=== PATIENT | female | born 1995 | race American Indian/Alaskan Native ===

== ENCOUNTER 2017-08-04 22:59 | Emergency (ER) | payer BC, OTHER ==
[2017-08-04 22:59] VITALS: BMI 29.1
[2017-08-04 23:16] VITALS: O2SAT 99
--- NOTE | 2017-08-04 23:30 | C.PDOC ---
History Of Present Illness 22 year old female presents to the ER with a complaint of abdominal pain associated with nausea for the past few days. Patient states she believes she might be . Denies diarrhea. Chief Complaint (Nursing): Abdominal Pain History Per: Patient History/Exam Limitations: no limitations Onset/Duration Of Symptoms: Days Current Symptoms Are (Timing): Still Present Location Of Pain/Discomfort: RUQ, LUQ Radiation Of Pain To:: None Quality Of Discomfort: Unable To Describe Associated Symptoms: Nausea. denies: Fever, Vomiting, Diarrhea Exacerbating Factors: None Alleviating Factors: None Recent travel outside of the [place]: No Abnormal Vaginal Bleeding: No Past Medical History Reviewed: Historical Data, Nursing Documentation, Vital Signs Vital Signs: Last Vital Signs Temp 98.0 F 08/05/17 02:45 Pulse 92 H 08/05/17 02:45 Resp 20 08/05/17 02:45 BP 105/52 L 08/05/17 02:45 Pulse Ox 99 08/05/17 02:45 - [facility] Procedures EXTRACTION OF POC, LOW CERVICAL, OPEN APPROACH (05/25/15) Family History: States: Unknown Family Hx - Social History Hx Alcohol Use: No Hx Substance Use: No - Immunization History Hx Tetanus Toxoid Vaccination: Yes Hx Influenza Vaccination: Yes Hx Pneumococcal Vaccination: No Review Of Systems Constitutional: Negative for: Fever, Chills Cardiovascular: Negative for: Chest Pain, Palpitations Respiratory: Negative for: Cough, Shortness of Breath Gastrointestinal: Positive for: Nausea, Abdominal Pain. Negative for: Vomiting Physical Exam - Physical Exam Appears: Non-toxic Skin: Normal Color, Warm, Dry Head: Atraumatic, Normacephalic Eye(s): bilateral: Normal Inspection Oral Mucosa: Moist Chest: Symmetrical, No Tenderness Cardiovascular: Rhythm Regular Respiratory: Normal Breath Sounds, No Rales, No Rhonchi, No Wheezing Gastrointestinal/Abdominal: Soft, Tenderness (RUQ, LUQ), No Guarding, No Rebound Back: No CVA Tenderness Neurological/Psych: Oriented x3, Normal Speech ED Course And Treatment - Laboratory Results Result Diagrams: 08/04/17 23:59 08/04/17 23:59 O2 Sat by Pulse Oximetry: 99 (Room air) Pulse Ox Interpretation: Normal Progress Note: Bloodwork, urinalysis, abdominal US and pelvis US ordered. Disposition Counseled Patient/Family Regarding: Diagnosis - Disposition Referrals: [facility] [Outside] Disposition: HOME/ ROUTINE Disposition Time: 03:25 Condition: STABLE Prescriptions: Ondansetron ODT [Zofran ODT] 1 odt PO BID PRN #6 odt PRN Reason: Nausea/Vomiting Forms: [facility] (Burmese) - POA Present On Arrival: None - Clinical Impression Clinical Impression: , Nausea and vomiting during prior to 22 weeks gestation - Scribe Statement The provider has reviewed the documentation as recorded by the Scribe Fernando Garcia All medical record entries made by the Scribe were at my direction and personally dictated by me. I have reviewed the chart and agree that the record accurately reflects my personal performance of the history, physical exam, medical decision making, and the department course for this patient. I have also personally directed, reviewed, and agree with the discharge instructions and disposition.
[2017-08-05 00:20] LABS: ALB/GLOB RATIO 1.1 (1.0-2.1); ALBUMIN 4.1 g/dL (3.5-5.0); ALT/SGPT 14 U/L (9-52); AST/SGOT 17 U/L (14-36); BLOOD UREA NITROGEN 9 mg/dL (7-17); CALCIUM 9.2 mg/dl (8.6-10.4); GFR AFRICAN-AMERICAN > 60; GFR NON-AFRICAN AMERICAN > 60
[2017-08-05 00:28] LABS: BASO # 0.1 K/uL (0.0-0.2); BASO % 0.4 % (0.0-2.0); EOS # 0.3 K/uL (0.0-0.7); EOS % 2.2 % (0.0-4.0); HEMOGLOBIN 11.3 g/dL (11.0-16.0); LYMPH # 3.2 K/uL (1.0-4.3); LYMPH % 27.2 % (20.0-40.0); MEAN CORPUSCULAR HEMOGLOBIN 26.7 pg (27.0-31.0); MEAN CORPUSCULAR HGB CONC 32.9 g/dL (33.0-37.0); MEAN PLATELET VOLUME 8.6 fL (7.2-11.7); MONO # 0.6 K/uL (0.0-0.8); MONO % 5.3 % (0.0-10.0); NEUT # 7.5 K/uL (1.8-7.0); NEUT % 64.9 % (50.0-75.0); NRBC % 0.1 % (0.0-2.0); RBC 4.24 Mil/uL (3.80-5.20); RED CELL DISTRIBUTION WIDTH 13.3 % (11.5-14.5); WHITE BLOOD COUNT 11.6 K/uL (4.8-10.8)
[2017-08-05 00:34] LABS: URINE BILIRUBIN NEGATIVE (NEGATIVE); URINE CLARITY Clear (Clear); URINE COLOR YELLOW (YELLOW); URINE GLUCOSE (UA) NEGATIVE (Normal)
[2017-08-05 00:35] LABS: URINE BLOOD NEGATIVE (NEGATIVE); URINE LEUKOCYTE ESTERASE NEGATIVE Leu/uL (Negative); URINE PROTEIN NEGATIVE (NEGATIVE); URINE UROBILINOGEN 0.2 mg/dL (0.2-1.0)
[2017-08-05 00:36] LABS: SQUAMOUS EPITHIAL 6 /hpf (0-5); URINE BACTERIA RARE (<OCC)
--- NOTE | 2017-08-05 02:57 | US ---
EXAM: US First Trimester, Transabdominal CLINICAL HISTORY: 22 years old, female; Pain; complicated by abdominal or pelvic pain; Lower; First trimester; Gestational age or lmp: 04/2017 or 05/2017; ; Additional info: Llq abd pain/ tenderness TECHNIQUE: Real-time transabdominal obstetrical ultrasound of the maternal pelvis and a first trimester with image documentation. COMPARISON: US - ABDOMEN COMPLETE 2017-08-05 01:17 FINDINGS: Gestation: The uterus contains a normal gestational sac measuring 2.6 cm. A normal yolk sac is identified measuring 3 mm. A normal pole is identified measuring 1 cm. Embryonic/ cardiac activity is identified, at a rate of 152 beats per minute. Measurements correlate with a mean gestational age of 7 weeks 2 days. The estimated date of delivery is 03/22/2018. Placenta/amniotic fluid: Cannot be adequately evaluated due to the early gestational age. Uterus/cervix: Unremarkable measuring 9.5 x 6.9 x 6.4 cm.. No myometrial mass. The cervix is closed measuring 3.1 cm. Ovaries: Right ovary is unremarkable measuring 3.9 x 1.8 x 2.3 cm. The right ovary measures 3.6 x 2.1 x 2.7 cm. There is a cyst in the left ovary which measures 2.1 x 1.6 x 1.9 cm probably a corpus luteal cyst. Free fluid: No free fluid. IMPRESSION: Live intrauterine , with no evidence of early complications. Left ovarian cyst, probable corpus luteal cyst.
[2017-08-05 03:04] VITALS: BP 105/52; PULSE 92; RESP 20; TEMP 98
--- NOTE | 2017-08-05 03:07 | US ---
EXAM: US Abdomen Complete CLINICAL HISTORY: 22 years old, female; Pain; Other: Pelvic; ; Additional info: Ruq abd pain TECHNIQUE: Real-time ultrasound of the abdomen (complete) with image documentation. COMPARISON: No relevant prior studies available. FINDINGS: Liver: Unremarkable measuring 15.2 cm. No mass. No intrahepatic bile duct dilation. Gallbladder: Unremarkable. No gallstones. Negative Currie's sign. The gallbladder wall is normal measuring 2 mm. Common bile duct: Unremarkable as visualized measuring 4 mm. No stones. No dilation. Pancreas: Unremarkable as visualized. Kidneys: Unremarkable. The right kidney measures 10.9 cm and the left kidney measures 10.9 cm No stones. No solid mass. No hydronephrosis. Spleen: Unremarkable measuring 9.3 cm. No splenomegaly. Aorta: Unremarkable. No aneurysm. Inferior vena cava: Unremarkable. IMPRESSION: Unremarkable abdominal ultrasound.
== END 2017-08-05 03:00 | disposition home or self-care (01) ==
LOC: C.ER 22:59
DX: O21.0 Mild hyperemesis gravidarum (principal); Z3A.01 Less than 8 weeks gestation of pregnancy

== ENCOUNTER 2017-09-15 21:59 | Emergency (ER) | payer BC ==
[2017-09-15 22:00] VITALS: BMI 29.1
[2017-09-15 22:13] VITALS: BP 105/70; PULSE 95; RESP 18; TEMP 99.3
--- NOTE | 2017-09-15 22:25 | C.PDOC ---
History Of Present Illness 22 y/o female, approximately 14 weeks , presents to the ED with complaints of nasal congestion and subjective fever for 2 days. Patient states she had a fever of 106 at work today. She has a 2-year-old toddler at home with mild cough and congestion, diagnosed with viral syndrome. Otherwise patient denies any nausea, vomiting, abdominal pain, or vaginal bleeding. Time Seen by Provider: 09/15/17 22:15 Chief Complaint (Nursing): Cough, Cold, Congestion History Per: Patient History/Exam Limitations: no limitations Onset/Duration Of Symptoms: Days Current Symptoms Are (Timing): Still Present Past Medical History Reviewed: Historical Data, Nursing Documentation, Vital Signs Vital Signs: Last Vital Signs Temp 99.3 F 09/15/17 22:10 Pulse 95 H 09/15/17 22:10 Resp 18 09/15/17 22:10 BP 105/70 09/15/17 22:10 Pulse Ox 100 09/15/17 23:02 Surgical History: - [facility] Procedures EXTRACTION OF POC, LOW CERVICAL, OPEN APPROACH (05/25/15) Family History: States: Unknown Family Hx - Social History Hx Tobacco Use: No Hx Alcohol Use: No Hx Substance Use: No - Immunization History Hx Tetanus Toxoid Vaccination: Yes Hx Influenza Vaccination: No Hx Pneumococcal Vaccination: No Review Of Systems Except As Marked, All Systems Reviewed And Found Negative. Constitutional: Positive for: Fever ENT: Positive for: Nose Discharge, Nose Congestion Cardiovascular: Negative for: Chest Pain Respiratory: Negative for: Shortness of Breath Gastrointestinal: Negative for: Nausea, Vomiting, Abdominal Pain Genitourinary: Negative for: Vaginal Bleeding Physical Exam - Physical Exam Appears: Non-toxic, No Acute Distress Skin: Normal Color, Warm, Dry Head: Atraumatic, Normacephalic Eye(s): bilateral: Normal Inspection, PERRL, EOMI Nose: Normal, No Discharge Oral Mucosa: Moist Throat: Normal, No Erythema, No Exudate Neck: Normal ROM, Supple Chest: Symmetrical Cardiovascular: Rhythm Regular, No Murmur Respiratory: Normal Breath Sounds, No Rales, No Rhonchi, No Wheezing Gastrointestinal/Abdominal: Soft, No Tenderness, No Guarding, Other (Mildly gravid abdomen) Extremity: Bilateral: Atraumatic, Normal Color And Temperature, Normal ROM Neurological/Psych: Oriented x3, Normal Speech ED Course And Treatment O2 Sat by Pulse Oximetry: 98 (RA) Pulse Ox Interpretation: Normal Medical Decision Making Medical Decision Making: Impression: Likely mild viral syndrome as with her 2 y/o toddler @ home. On arrival to the ED patient is afebrile. Abdominal exam benign. Patient counseled regarding normal exam findings and diagnosis. Stable for discharge home. Disposition Doctor Will See Patient In The: Office Counseled Patient/Family Regarding: Studies Performed, Diagnosis - Disposition [facility]errals[facility] [Outside] Disposition: HOME/ ROUTINE Disposition Time: 22:24 Condition: GOOD Instructions: - The Fourth Month Forms: [facility] (Slovak) - POA Present On Arrival: None - Clinical Impression Clinical Impression: Viral syndrome, - Scribe Statement The provider has reviewed the documentation as recorded by the Scribe (Keena Rosenbaum) Provider Attestation: All medical record entries made by the Scribe were at my direction and personally dictated by me. I have reviewed the chart and agree that the record accurately reflects my personal performance of the history, physical exam, medical decision making, and the department course for this patient. I have also personally directed, reviewed, and agree with the discharge instructions and disposition.
[2017-09-15 23:38] VITALS: O2SAT 98
== END 2017-09-15 22:50 | disposition home or self-care (01) ==
LOC: C.ER 21:59
DX: O26.892 Other specified pregnancy related conditions, second trimester (principal); B34.9 Viral infection, unspecified; Z3A.14 14 weeks gestation of pregnancy

== ENCOUNTER 2018-06-08 19:28 | Emergency (ER) | payer SELFPAY ==
[2018-06-08 19:28] VITALS: BMI 29.1
--- NOTE | 2018-06-08 20:13 | C.PDOC ---
History Of Present Illness 23 year old female, 16 weeks , presents to the ED c/o lower abdominal pain for the past 4 days. Patient denies fever, chills, nausea, vomit, back pain, dysuria, hematuria, vaginal bleeding, vaginal discharge. Chief Complaint (Nursing): Abdominal Pain History Per: Patient History/Exam Limitations: no limitations Onset/Duration Of Symptoms: Days (4) Current Symptoms Are (Timing): Still Present Location Of Pain/Discomfort: Suprapubic Radiation Of Pain To:: None Quality Of Discomfort: "Pain" Associated Symptoms: denies: Nausea, Vomiting, Diarrhea, Urinary Symptoms Recent travel outside of the [place]: No Additional History Per: Patient Abnormal Vaginal Bleeding: No Last Menstral Period: 01/2018 Past Medical History Reviewed: Historical Data, Nursing Documentation, Vital Signs - Medical History PMH: No Chronic Diseases Denies: Chronic Kidney Disease Surgical History: - [facility] Procedures EXTRACTION OF POC, LOW CERVICAL, OPEN APPROACH (05/25/15) Family History: States: Unknown Family Hx - Social History Hx Tobacco Use: No Hx Alcohol Use: No Hx Substance Use: No - Immunization History Hx Tetanus Toxoid Vaccination: Yes Hx Influenza Vaccination: No Hx Pneumococcal Vaccination: No Review Of Systems Constitutional: Negative for: Fever, Chills Cardiovascular: Negative for: Chest Pain Respiratory: Negative for: Shortness of Breath Gastrointestinal: Positive for: Abdominal Pain. Negative for: Nausea, Vomiting Genitourinary: Negative for: Dysuria, Hematuria, Vaginal Discharge, Vaginal Bleeding Musculoskeletal: Negative for: Back Pain Skin: Negative for: Rash Physical Exam - Physical Exam Appears: Non-toxic, No Acute Distress Skin: Normal Color, Warm, Dry Head: Atraumatic, Normacephalic Eye(s): bilateral: Normal Inspection Oral Mucosa: Moist Neck: Normal ROM, Supple Chest: Symmetrical Cardiovascular: Rhythm Regular Respiratory: Normal Breath Sounds, No Rales, No Rhonchi, No Wheezing Gastrointestinal/Abdominal: Soft, Tenderness (hypogastric), No Guarding, No Rebound Back: No CVA Tenderness Extremity: Normal ROM, No Tenderness, No Swelling Neurological/Psych: Oriented x3, Normal Speech, Normal Cognition Gait: Steady ED Course And Treatment - Laboratory Results Result Diagrams: 06/08/18 20:32 06/08/18 20:32 O2 Sat by Pulse Oximetry: 97 Pulse Ox Interpretation: Normal - CT Scan/US Pelvic US Other Rad Studies (CT/US): Read By Radiologist, Radiology Report Reviewed CT/US Interpretation: Procedure. OB Pelvic Ultrasound. History. Lower abdominal pain. Comparison. None available. Findings. Uterus. Single live intrauterine gestation. CRL equivalent to 12 wks/0 days gestation. age (Ultrasound estimated): 12 weeks 0 days. Heart rate: 152.26 bpm. Uterus measures 13.42 x 8.12 x 7.13 cm. No mass. Cervix. Long and closed. No cervical abnormality seen. Right Ovary. Measures 3.14 x 2.74 x 3.5 cm. No mass. Normal flow. Corpus luteal cyst measures 1.71 x 1.28 x 1.89 cm. Left Ovary. Measures 2.22 x 1.44 x 2.16 cm. No mass. Normal flow. Free Fluid. None. Other Findings. None. Impression. 1. Single live intrauterine gestation. 2. Right ovarian corpus luteal cyst. . Electronically signed on Jun 08, 2018 10:54:17 PM EDT by: Shalom Giordano M.D., NOHEMI Certified By ABR & CBCCT. Fellowship Trained MRI and CT Specialist Medical Decision Making Medical Decision Making: Plan: * Labs * Urine culture * UA * Pelvic US Disposition Counseled Patient/Family Regarding: Diagnosis - Disposition Referrals: [facility] [Outside] Disposition: HOME/ ROUTINE Disposition Time: 23:36 Condition: STABLE Prescriptions: Acetaminophen [Tylenol 325mg tab] 650 mg PO Q6 #20 tab Instructions: Round Ligament Pain Forms: [facility] (Omani) - POA Present On Arrival: None - Clinical Impression Clinical Impression: , Round ligament pain - Scribe Statement The provider has reviewed the documentation as recorded by the Scribe Cody Rubalcava All medical record entries made by the Scribe were at my direction and personally dictated by me. I have reviewed the chart and agree that the record accurately reflects my personal performance of the history, physical exam, medical decision making, and the department course for this patient. I have also personally directed, reviewed, and agree with the discharge instructions and disposition.
[2018-06-08 20:20] VITALS: O2SAT 97
[2018-06-08 20:36] LABS: BASO % 0.4 % (0.0-2.0); EOS # 0.3 K/uL (0.0-0.7); EOS % 2.8 % (0.0-4.0); HEMOGLOBIN 11.3 g/dL (11.0-16.0); LYMPH # 2.9 K/uL (1.0-4.3); LYMPH % 24.1 % (20.0-40.0); MEAN CORPUSCULAR HEMOGLOBIN 26.9 pg (27.0-31.0); MEAN CORPUSCULAR HGB CONC 32.8 g/dL (33.0-37.0); MEAN PLATELET VOLUME 8.3 fL (7.2-11.7); MONO # 0.7 K/uL (0.0-0.8); MONO % 5.5 % (0.0-10.0); NEUT # 8.1 K/uL (1.8-7.0); NEUT % 67.2 % (50.0-75.0); RBC 4.18 Mil/uL (3.80-5.20); RED CELL DISTRIBUTION WIDTH 13.9 % (11.5-14.5); WHITE BLOOD COUNT 12.1 K/uL (4.8-10.8)
[2018-06-08 20:39] LABS: SQUAMOUS EPITHIAL 6 /hpf (0-5)
[2018-06-08 20:43] LABS: URINE CLARITY CLEAR (Clear); URINE COLOR YELLOW (YELLOW)
[2018-06-08 20:44] LABS: URINE BILIRUBIN NEGATIVE (NEGATIVE); URINE BLOOD NEGATIVE (NEGATIVE); URINE GLUCOSE (UA) NEGATIVE (Normal); URINE LEUKOCYTE ESTERASE NEG Leu/uL (Negative); URINE PROTEIN NEGATIVE (NEGATIVE); URINE UROBILINOGEN 0.2 mg/dL (0.2-1.0)
[2018-06-08 21:00] LABS: ALB/GLOB RATIO 1.4 (1.0-2.1); ALT/SGPT 8 U/L (9-52); AST/SGOT 23 U/L (14-36); BLOOD UREA NITROGEN 10 mg/dL (7-17); CALCIUM 9.3 mg/dl (8.6-10.4); GFR NON-AFRICAN AMERICAN > 60
[2018-06-08 23:44] VITALS: BP 120/63; PULSE 75; RESP 20; TEMP 97.1
--- NOTE | 2018-06-09 09:35 | US ---
Date of service: 06/08/2018 PROCEDURE: OB Pelvic Ultrasound HISTORY: lower abd pain LMP: Unknown COMPARISON: None available. FINDINGS: UTERUS: Gestational sac: Single live intrauterine gestation. Yolk sac is visualized. CRL measures 5.34 cm corresponding to 12 weeks and 0 day of gestational age. Heart rate: 152 bpm. age (Ultrasound estimated): 12 weeks and 0 day Dora-gestational hemorrhage: None. Date of delivery (Ultrasound estimated) : 12/21/2018 Uterus measures 13 4 x 8.1 x 7.1 cm. Anteverted and enlarged. CERVIX: Measures 3.3 . cm. Long and closed. No cervical abnormality seen. RIGHT OVARY: Measures 3.1 x 2.7 x 3.5 cm. No mass lesion. Normal flow. there is a 1.7 x 1.2 x 1.8 cm corpus luteum cyst LEFT OVARY: Measures 2.2 x 1.4 x 2.1 cm. No solid mass. Normal flow. FREE FLUID: None. OTHER FINDINGS: None. IMPRESSION: Single live intrauterine gestation with mean gestational age of 12 weeks and 0 day. The estimated date of delivery by ultrasound is 12/21/2018. Please note this is a limited OB ultrasound performed on an emergent basis. Follow-up dedicated anatomic survey is advised. A preliminary report was provided by [employer].
== END 2018-06-08 23:45 | disposition home or self-care (01) ==
LOC: C.ER 19:28
DX: O26.891 Other specified pregnancy related conditions, first trimester (principal); R10.2 Pelvic and perineal pain; Z3A.12 12 weeks gestation of pregnancy